=== PATIENT | female | born 1970 | race Caucasian/White ===

== ENCOUNTER 2017-06-04 12:38 | Emergency (ER) | payer MEDICARE ==
[~2017-06-04] VITALS: Ht 165.1 cm; Wt 120.2 kg
[~2017-06-04 12:38] MED LIST: AMITRIPTYLINE10 M1 PO; ASPIRIN LOW DOS81 M1 PO; CARLSON VITAM2000 IU PO; FOLIC ACID1 MG PO; MELOXICAM15 MG PO; METHOTREXATE 22.5 MG PO; PLAQUENIL200 MG PO; PREDNISONE 20MG20 MG PO
[2017-06-04] MEDS ORDERED: CYCLOBENZ5 MG PO (12:49)
[2017-06-04] MEDS ORDERED: XELJANZ5 MG PO (12:50)
[2017-06-04 13:04] LABS: URINE BILIRUBIN - DIPSTICK NEGATIVE (NEG); URINE BLOOD NEGATIVE (NEG)
--- OUTSIDE RECORDS SUMMARY | 2017-06-04 13:10 | External Medical Summary Rpt ---
Author Author [facility] Organization [facility] Address Unknown Phone Unavailable Care Team Providers Care Raisin Washer Name Role Phone CHAR JUNIOR PCP [phone] Encounter [facility] [id number] Date(s): 08/05/16 - 08/05/16 [facility] [address] [place] [id number]- Discharge Diagnosis: Abnormal vaginal bleeding Discharge Disposition: OP Self Care or Home Attending Physician: SANTOSH ANGELES MD Admitting Physician: SANTOSH ANGELES MD Referring Physician: SANTOSH ANGELES MD Reason for Visit ABNORMAL UTERINE AND VAGINAL BLEEDING, UNSPECIFIED Vital Signs Most recent 1 2 to oldest [Reference Range]: Temperature Oral Source (08/05/16 1:24 PM) Temperature Fahrenheit Mode (08/05/16 1:24 PM) Temperature, 97.6 Deg F Fahrenheit (08/05/16 1:24 PM) [96.8-99.7 Deg F] Clinical 36.4 Deg C Temperature, (08/05/16 1:24 PM) C Peripheral 84 bpm 88 bpm Pulse Rate (08/05/16 3:34 PM) (08/05/16 1:24 PM) [60-100 bpm] Respiratory 18 Breaths/Min 16 Breaths/Min Rate [14-20 (08/05/16 3:34 PM) (08/05/16 1:24 PM) Breaths/Min] Blood Arm, left upper Pressure (08/05/16 3:34 PM) Location Blood Non-Invasive BP Device Pressure (08/05/16 3:34 PM) Source Blood 126/64 mmHg 143/94 mmHg Pressure (08/05/16 3:34 PM) *HI* [90-140/60-9 (08/05/16 1:24 PM) 0 mmHg] Oxygen 100 % 100 % Saturation (08/05/16 3:34 PM) (08/05/16 1:24 PM) [94-100 %] Oxygen Room air Therapy Mode (08/05/16 1:24 PM) Problem List Condition Effective Status Health Informant Dates Status Brain Active Lesion(Confi rmed) RA(Confirmed Active ) Allergies, Adverse Reactions, Alerts Substance Reaction Severity Status gabapentin Active Lyrica Active sulfamethoxazole Active Medications traMADol (Ultram 50 mg oral tablet)1 Tab, Oral, Every 6 Hours, 3 Day(s), As Needed, for pain, Refills: 0Ordering provider: ROBERTO TORRES MD Results GENERAL CHEMISTRY Most recent 1 to oldest [Reference Range]: Sodium Level 144 mmol/L [136-146 (08/05/16 1:56 PM) mmol/L] Potassium 5.2 mmol/L Level *HI* [3.5-5.1 (08/05/16 1:56 PM) mmol/L] Chloride 111 mmol/L Level (08/05/16 1:56 PM) [102-112 mmol/L] Carbon 29 mmol/L Dioxide (08/05/16 1:56 PM) Level [21-32 mmol/L] Anion Gap 9 [9-20] (08/05/16 1:56 PM) Glucose 72 mg/dL Level *LOW* [74-106 (08/05/16 1:56 PM) mg/dL] Blood Urea 14 mg/dL Nitrogen (08/05/16 1:56 PM) [7-22 mg/dL] Creatinine 1.00 mg/dL Level (08/05/16 1:56 PM) [0.55-1.02 mg/dL] eGFR 73 mL/min/1.73m2 [>=60 (08/05/16 1:56 PM) mL/min/1.73m 2] eGFR 60 mL/min/1.73m2 NonAfrican (08/05/16 1:56 PM) [>=60 mL/min/1.73m 2] Bun/Creatini 14.0 ne (08/05/16 1:56 PM) [8.0-20.0] Calcium 8.8 mg/dL Level (08/05/16 1:56 PM) [8.5-10.1 mg/dL] Protein 6.6 Gram/dL Total (08/05/16 1:56 PM) [6.4-8.2 Gram/dL] Albumin 3.2 Gram/dL Level *LOW* [3.4-5.0 (08/05/16 1:56 PM) Gram/dL] Globulin 3.4 Gram/dL [1.5-4.5 (08/05/16 1:56 PM) Gram/dL] A/G Ratio 0.9 [1.1-2.5] *LOW* (08/05/16 1:56 PM) Bilirubin 0.5 mg/dL Total (08/05/16 1:56 PM) [0.2-1.0 mg/dL] Alk Phos 84 Units/Liter [27-136 (08/05/16 1:56 PM) Units/Liter] AST [5-37 20 Units/Liter Units/Liter] (08/05/16 1:56 PM) ALT [12-78 28 Units/Liter Units/Liter] (08/05/16 1:56 PM) HEMATOLOGY Most recent 1 to oldest [Reference Range]: WBC 9.4 K/uL [4.0-10.0 (08/05/16 1:56 PM) K/uL] RBC 4.58 Million/uL [3.93-5.22 (08/05/16 1:56 PM) Million/uL] Hgb 14.4 g/dL [11.2-15.7 (08/05/16 1:56 PM) g/dL] Hct 45.1 % [34.1-44.9 *HI* %] (08/05/16 1:56 PM) MCV 98.5 fL [79.0-94.8 *HI* fL] (08/05/16 1:56 PM) MCH 31.4 pg [25.6-32.2 (08/05/16 1:56 PM) pg] MCHC 31.9 Gram/dL [32.2-36.5 *LOW* Gram/dL] (08/05/16 1:56 PM) Platelet 235 K/uL Count (08/05/16 1:56 PM) [163-369 K/uL] MPV 10.0 fL [9.4-12.4 (08/05/16 1:56 PM) fL] RDW 13.9 % [11.6-14.4 (08/05/16 1:56 PM) %] Neut % 74.5 % [34.0-71.0 *HI* %] (08/05/16 1:56 PM) Neut # 6.99 K/uL [1.56-6.13 *HI* K/uL] (08/05/16 1:56 PM) Lymph % 12.5 % [19.3-53.1 *LOW* %] (08/05/16 1:56 PM) Lymph # 1.17 x10(3)/uL [1.00-3.90 (08/05/16 1:56 PM) x10(3)/uL] [place] % 11.0 % [3.0-9.0 %] *HI* (08/05/16 1:56 PM) [place] # 1.03 K/uL [0.16-1.00 *HI* K/uL] (08/05/16 1:56 PM) Eos % 1.2 % [0.0-7.0 %] (08/05/16 1:56 PM) Eos # 0.11 x10(3)/uL [0.00-0.80 (08/05/16 1:56 PM) x10(3)/uL] Baso % 0.3 % [0.0-1.5 %] (08/05/16 1:56 PM) Baso # 0.03 x10(3)/uL [0.00-0.20 (08/05/16 1:56 PM) x10(3)/uL] Slide Review No (08/05/16 1:56 PM) IG# 0.05 x10(3)/uL [0.00-0.05 (08/05/16 1:56 PM) x10(3)/uL] IG% 0.50 % [0.00-0.60 (08/05/16 1:56 PM) %] Immunizations No data available for this section Procedures No data available for this section Social History Social History Response Type Tobacco Use in Last 12 Months: No. Assessment and Plan No data available for this section Hospital Discharge Instructions Patient EducationUterine Bleeding, Dysfunctional
--- OUTSIDE RECORDS SUMMARY | 2017-06-04 13:10 | External Medical Summary Rpt ---
Author Author [facility] Address Unknown Phone Unavailable Care Team Providers Care Manager Residential Name Role Phone CHAR JUNIOR PCP [phone] Encounter [facility] [id number] Date(s): 08/05/16 - 08/05/16 [facility] [address] [place] [id number]- Discharge Diagnosis: Abnormal vaginal bleeding Discharge Disposition: [...] 1.17 x10(3)/uL [1.00-3.90 (08/05/16 1:56 PM) x10(3)/uL] [place] % 11.0 % [3.0-9.0 %] *HI* (08/05/16 1:56 PM) [place] # 1.03 K/uL [0.16-1.00 *HI* K/uL] (08/05/16 [...]
--- OUTSIDE RECORDS SUMMARY | 2017-06-04 13:11 | External Medical Summary Rpt ---
Author Author [facility] [employer] Organization [facility] [employer] Address Unknown Phone Unavailable
--- OUTSIDE RECORDS SUMMARY | 2017-06-04 13:11 | External Medical Summary Rpt ---
Demographics Preferred Language Macanese Marital Status Unknown Yazidism Affiliation Unknown Race Unknown Ethnic Group Unknown Author Author [facility] Address Unknown Phone Immunization Unable to retrieve immunization data due to connection failure with Immunization Registry. Please try again later.
--- OUTSIDE RECORDS SUMMARY | 2017-06-04 13:11 | External Medical Summary Rpt ---
Demographics Preferred Language Mexican Marital Status Unknown Sikhism Affiliation Unknown Race Unknown Ethnic Group Unknown Author Author [facility] Address Unknown Phone Immunization Unable to retrieve immunization data due to connection failure with Immunization Registry. Please try again later.
--- OUTSIDE RECORDS SUMMARY | 2017-06-04 13:11 | External Medical Summary Rpt ---
Author Author [facility] Organization [facility] Address Unknown Phone Unavailable Purpose Continuity of Care Document - through 2016
--- OUTSIDE RECORDS SUMMARY | 2017-06-04 13:11 | External Medical Summary Rpt ---
Author Author , [facility]EEPTI Camara [facility] Address Unknown Phone [email or web address] Support Name Relationship Address Phone SANTY, Next Of Kin [address] [place] [phone] Purpose Continuity of Care Document - 05-22-2013 through 2016 Allergies, Adverse Reactions, Alerts Type Drug Allergy Adverse Reaction to Substance Substance Reaction Severity SULFA (sulfonamide) Unknown Unknown Gabapentin Unknown Unknown Pregabalin Unknown Unknown Medications Na ND Rx Da Fi Fi Am Da Di Ph RX Ph St me C No te ll ll ou ys ag ar # ys at rm s nt no ma ic us Or Da si cy ia de te s n re d Sa 63 07 0 No li 80 -1 ne 70 8- Lo 10 20 ng Fl 07 13 er us 5 h Ac 10 ti ML ve Sy ri ng e Vital Signs 05-22-2013 20:08 Name Value Interpretat Reference Comment ion Range Body 98.5 [degF] Temperature BP 88 mm[Hg] Diastolic BP Systolic 145 mm[Hg] Heart 71 /min Rate/Pulse O2% 100 % Respiratory 20 /min Rate 05-22-2013 18:28 Name Value Interpretat Reference Comment ion Range BP 92 mm[Hg] Diastolic BP Systolic 147 mm[Hg] Heart 74 /min Rate/Pulse O2% 100 % Respiratory 20 /min Rate Results Labs Lab Lab Date Result Refere Interp Status Commen Order Detail nces retati t Range on COMPREHENSIVE METABOLIC PANEL (05-22-2013 19:15) Glucose 76 74-106 complet 013 mg/dL ed Bld-mCn 19:15 c BUN 11 7-18 complet Bld-mCn 013 mg/dL ed c 19:15 Creat 0.7 0.6-1.0 complet SerPl-m 013 mg/dL ed Cnc 19:15 ESTIMAT 188 50-200 complet ED 013 ML/MIN ed CREATIN 19:15 INE CLEARAN CE GFR 92 59- complet (ESTIMA 013 ML/MIN ed MABEL) 19:15 Sodium 18-2 140 136-145 complet SerPl-s 013 mmoL/L ed Cnc 19:15 Potassi 18-2 3.9 3.5-5.1 complet um 013 mmoL/L ed SerPl-s 19:15 Cnc Chlorid 05-22-2 104 98-107 complet e 013 mmoL/L ed SerPl-s 19:15 Cnc CO2 18-2 30 21.0-32 complet SerPl-s 013 mmoL/L .0 ed Cnc 19:15 Calcium 18-2 8.6 8.5-10. complet 013 mg/dL 1 ed SerPl-m 19:15 Cnc Prot 05-22-2 7.3 6.4-8.2 complet SerPl-m 013 gm/dL ed Cnc 19:15 Albumin 05-22-2 3.3 3.4-5.0 complet 013 gm/dL ed SerPl-m 19:15 Cnc Globuli 05-22-2 4.0 1.3-3.2 complet n 013 gm/dL ed Ser-mCn 19:15 c Albumin 18-2 0.8 UNK 1.1-1.8 complet /Glob 013 ed SerPl-m 19:15 Rto Bilirub 18-2 0.3 0.2-1.0 complet 013 mg/dL ed SerPl-m 19:15 Cnc AST 18-2 8 U/L 15-37 complet SerPl-c 013 ed Cnc 19:15 ALT 18-2 35 U/L 30-65 complet SerPl-c 013 ed Cnc 19:15 ALP -18-2 102 U/L 50-136 complet SerPl-c 013 ed Cnc 19:15 CK SerPl-cCnc (05-22-2013 19:15) CK -18-2 53 U/L 26-192 complet SerPl-c 013 ed Cnc 19:15 CK MB SerPl-mCnc (05-22-2013 19:15) CK MB 18-2 0.9 0.0-3.6 complet SerPl-m 013 ng/mL ed Cnc 19:15 TROPONIN I (05-22-2013 19:15) TROPONI -18-2 Less 0.00-0. complet N I 013 than 06 ed 19:15 0.02 ng/mL CBC with AUTO DIFF (05-22-2013 18:45) WBC # 07-18-2 8.3 4.8-10. complet Bld 013 K/MM3 8 ed Auto 18:45 RBC # 07-18-2 4.50 4.2-5.4 complet Bld 013 M/mm3 ed Auto 18:45 Hgb 07-18-2 14.1 12.2-16 complet Bld-mCn 013 g/dL .2 ed c 18:45 Hct Fr -18-2 43.1 % 37.0-47 complet Bld 013 .0 ed 18:45 MCV RBC 07-18-2 95.8 fl 82.2-97 complet 013 .8 ed 18:45 MCH RBC 18-2 31.3 pg 27-31.2 complet Qn 013 ed Auto 18:45 MEAN 07-18-2 32.6 31.8-35 complet CORPUSC 013 g/dl .4 ed ULAR 18:45 HGB CONC RDW RBC -18-2 15.3 % 11.5-17 complet Auto 013 .5 ed 18:45 Platele 07-18-2 265 142-424 complet t Bld 013 K/mm3 ed Ql 18:45 Manual MEAN 18-2 7.9 fl 7.4-10. complet PLATELE 013 4 ed T 18:45 VOLUME Granulo -18-2 72.1 % 37.0-80 complet cytes 013 .0 ed Fr Bld 18:45 Auto LYMPH % 07-18-2 19.4 % 10-50.0 complet 013 ed 18:45 Monocyt 07-18-2 5.6 % 1.7-9.3 complet es Fr 013 ed Bld 18:45 Auto Eosinop 07-18-2 2.4 % 0.1-12. complet hil Fr 013 0 ed Bld 18:45 Auto Basophi 07-18-2 0.5 % 0.1-2.0 complet ls Fr 013 ed Bld 18:45 Auto Granulo 07-18-2 6.0 1.8-7.8 complet cytes # 013 K/mm3 ed Bld 18:45 Auto Lymphoc 07-18-2 1.6 0.7-4.5 complet ytes Fr 013 K/mm3 ed Bld 18:45 Auto Monocyt 07-18-2 0.5 0.1-1.0 complet es # 013 K/mm3 ed Bld 18:45 Auto Eosinop -18-2 0.2 0.0-0.4 complet hil # 013 K/mm3 ed Bld 18:45 Auto Basophi -18-2 0.0 0-0.2 complet ls # 013 K/MM3 ed Bld 18:45 Auto Encounters Encounter Start End Date Code Location Performer Type Date Emergency RJ Brooke MD (ER) 3 17:52 3 20:28 [facility]
--- OUTSIDE RECORDS SUMMARY | 2017-06-04 13:11 | External Medical Summary Rpt ---
Author Author , DEEPTI Camara [facility] Address Unknown Phone [email or web address] Support Name Relationship Address Phone SANTY, Next Of Kin [address] [place] [phone] Purpose Continuity of Care Document - 05-22-2013 [...] Brooke MD (ER) 3 17:52 3 20:28 [facility]
--- NOTE | 2017-06-04 13:15 | Emergency Room Report ---
History of Present Illness Time Seen by [email or web address] Presenting Problem in Triage Pt arrived:Wheelchair Presenting Problem:PT REPORTS GENERALIZED WEAKNESS. PT REPORTS WEAKNESS AND INTENSE PAIN WITH TOUCH ON L SIDE OF BODY. 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 PT ALSO NOTES THAT HER URINE HAS A "SWEET" SMELL TO IT X2 WEEKS. 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 N Clinical Suspician of Infection? N Mental Status: 1 - Regular (Normal Baseline) Sepsis Risk:Low Sepsis Risk Have you (or family members/close friends) recently traveled outside the [place]? N If Yes, where/when: Have you had exposure to infectious disease within the past month? N TB? Other? Specify: Patient reports "I have a humming in my body, like a refrigerator, and my urine smells sweet." Onset yesterday, very gradual. No chest pain or palpitations. States has fibromyalgia and chronic fatigue with RA. Occasionally uses a walker. No fever or vomiting. No syncope. No cough. She states she has been trying to work, then doesn't feel well, and can't go to work. ALLERGIES Coded Allergies: Sulfa (Sulfonamide Antibiotics) (06/04/17) gabapentin (06/04/17) pregabalin (From LYRICA) (06/04/17) ORANGE JUICE (FOOD) (From ORANGE JUICE (FOOD/DRUG)) (Mild, "SINUS PROBLEMS" ) orange juice (From ORANGE JUICE (FOOD/DRUG)) (Mild, "SINUS PROBLEMS" 06/04/17) Home Medications Reported Medications Cyclobenzaprine Hcl (Cyclobenzaprine) 5 MG PO QHS #90 Tofacitinib Citrate (Xeljanz) 5 MG PO BID #180 History Medical History General CAD? No Angina: No [place]: No Hypertension? No Hyperlipidemia? No CHF? No DVT? No PE? No COPD? No Asthma? No Anemia? No GERD? No Gastric ulcers? No GI Bleed? No Hernia? No Thyroid Problems? No Hypothyroidism? No CVA? No Seizures? No Diabetes? No Renal Insuffiency? No End Stage Renal Disease? No UTI? No Stones? No GB Disease: No Nephritic Syndrome? No Asplenia? No Hepatitis? No Sickle Cell Disease? No Arthritis? Yes Migraines? Yes Cataracts? No Glaucoma? No MRSA? No HIV? No TB? No Anxiety? Yes Depression? Yes Cancer? No More? 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 Physical Exam Vital Signs Vital Signs Date Time Temp Pulse Resp B/P Pulse O2 O2 Flow FiO2 Ox Delivery Rate 06/04 1343 90 14 121/96 96 06/04 1340 90 121/96 06/04 1340 94 153/96 06/04 1339 86 126/78 06/04 1242 97.7 64 18 149/104 96 General Appearance normal appearance, WD/WN, no apparent distress Eye Exam - bilateral eye normal exam, bilateral eye PERRL, bilateral eye EOMI Neck normal inspection, non-tender, supple, full range of motion Respiratory Status Yes: trachea midline, chest symmetrical, non tender chest. No: respiratory distress, tender on palpation, use of accessory muscles, pain on inspiration, pain on expiration, productive cough, non productive cough. Lung Sounds bilateral: normal breath sounds, lungs clear. 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 Lymphatic no adenopathy Medical Decision Making LABS/Meds/Orders Pt receiving controlled substance in ED? No Results/Orders Laboratory Tests 06/04/17 1335: Troponin I < 0.02 06/04/17 1335: Sodium 139, Potassium 4.0, Chloride 102, Carbon Dioxide 32, BUN 10, Creatinine 0.8, Estimated Creat Clear 167, Estimated GFR (MDRD) 77, Glucose 108 H, Calcium 9.3, Total Bilirubin 0.4, AST 14 L, ALT 22, Alkaline Phosphatase 114, Total Protein 8.0, Albumin 3.4, Globulin 4.6 H, Albumin/Globulin Ratio 0.7 L, WBC 7.1, RBC 5.19, Hgb 15.8, Hct 48.7 H, MCV 93.9, RDW 13.5, Plt Count 292, MPV 8.0 , Gran % 73.0, Gran # 5.2, Lymphocytes % 20.2, Monocytes % 4.4, Eosinophils % 2.0, Basophils % 0.5, Lymphocytes # 1.4, Monocytes # 0.3, Eosinophils # 0.1, Basophils # 0.0, PUBS MCHC 32.4, MCH 30.4 06/04/17 1250: Urine Color YELLOW, Urine Appearance SL CLOUDY, Urine pH 7.0, Ur Specific Adams 1.010, Urine Protein NEGATIVE, Urine Ketones NEGATIVE, Urine Blood NEGATIVE, Urine Nitrate POSITIVE H, Urine Bilirubin NEGATIVE, Urine Urobilinogen 0.2, Ur Leukocyte Esterase 3+ H, Urine RBC OCC, Urine WBC 5-10, Ur Squamous Epith Cells 3-5, Urine Bacteria 4+, Urine Mucus OCC, Urine Glucose NEGATIVE Current Medication Orders Sig/Nafisa Start time Last Medication Dose Route Stop Time Status Admin Sodium Chloride 10 ML PRN PRN 06/04 1400 AC IV 06/05 1347 Orders Procedure Date/time Status IV SALINE LOCK 06/04 1347 Active ELECTROCARDIOGRAM REQUEST 06/04 1310 Active TROPONIN I 06/04 1310 Complete ORTHOSTATIC B/P 06/04 1309 Active CBC WITH AUTO DIFF 06/04 1309 Complete CHEM 12 PROFILE 06/04 1309 Complete URINALYSIS/COMPLETE 06/04 1254 Complete CULTURE, URINE 06/04 1250 Active 12 LEAD EKG-JOHANA (INITIAL) 06/04 UNK Active CM/EKG CM/EKG EKG rate, NSR, rhythm, no evid. of ischemic chgs, no ectopy, normal QRS, normal [place], normal EKG (NSR 77. ) Departure Departure Time of Disposition 1412 Disposition DC Home or Self Care(routine) Clinical Impression Primary Impression: UTI (urinary tract infection) Qualifiers: Urinary tract infection type: acute cystitis Hematuria presence: without hematuria Qualified Code: N30.00 - Acute cystitis without hematuria Condition STABLE Referrals MEL JUNIOR (Family) Patient Instructions Urinary Tract Infection Additional Instructions Lots of fluids, see your family doctor in [place] in one week if doing better ,sooner if no improvement; Rx Macrobid. Discharge Counseling Counseled pt/family regarding diagnosis, test results, medications/RX, home care, follow up needs Prescriptions Current Visit Scripts NITROFURANTOIN MONOHYD/M-CRYST (Macrobid 100 MG Capsule) 100 MG PO BID #14 CAP ED Critical Care Critical Care No at 1415
--- NOTE | 2017-06-04 13:15 | Emergency Room Report ---
History of Present Illness Time Seen by 124Kellee Presenting Problem in Triage Pt arrived:Wheelchair Presenting Problem:PT REPORTS GENERALIZED WEAKNESS. PT REPORTS WEAKNESS AND INTENSE PAIN WITH TOUCH ON L SIDE OF BODY. 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 PT ALSO NOTES THAT HER URINE HAS A "SWEET" SMELL TO IT X2 WEEKS. PT ALSO REPORTS DIZZINESS Onset of symptoms date/time:/ or onset unknown for:MEDICAL HX UNKNOWN Treatment Prior to Arrival: MEAL ROOM HAND Provided by: Sepsis Risk Assessment: Temp: 97.7 B/P: 149/104 MAP: 119 Pulse: 64 Resp: 18 Recent fever? N Clinical Suspician of Infection? N Mental Status: 1 - Regular (Normal Baseline) Sepsis Risk:Low Sepsis Risk Have you (or family members/close friends) recently traveled outside the [place]? N If Yes, where/when: Have you had exposure to infectious disease within the past month? N TB? Other? Specify: Patient reports "I have a humming in my body, like a refrigerator, and my urine smells sweet." Onset yesterday, very gradual. No chest pain or palpitations. States has fibromyalgia and chronic fatigue with RA. Occasionally uses a walker. No fever or vomiting. No syncope. No cough. She states she has been trying to work, then doesn't feel well, and can't go to work. ALLERGIES Coded Allergies: Sulfa (Sulfonamide Antibiotics) (06/04/17) gabapentin (06/04/17) pregabalin (From LYRICA) (06/04/17) ORANGE JUICE (FOOD) (From ORANGE JUICE (FOOD/DRUG)) (Mild, "SINUS PROBLEMS" ) orange juice (From ORANGE JUICE (FOOD/DRUG)) (Mild, "SINUS PROBLEMS" 06/04/17) Home Medications Reported Medications Cyclobenzaprine Hcl (Cyclobenzaprine) 5 MG PO QHS #90 Tofacitinib Citrate (Xeljanz) 5 MG PO BID #180 History Medical History General CAD? No Angina: No KS: No Hypertension? No Hyperlipidemia? No CHF? No DVT? No PE? No COPD? No Asthma? No Anemia? No GERD? No Gastric ulcers? No GI Bleed? No Hernia? No Thyroid Problems? No Hypothyroidism? No CVA? No Seizures? No Diabetes? No Renal Insuffiency? No End Stage Renal Disease? No UTI? No Stones? No GB Disease: No Nephritic Syndrome? No Asplenia? No Hepatitis? No Sickle Cell Disease? No Arthritis? Yes Migraines? Yes Cataracts? No Glaucoma? No MRSA? No HIV? No TB? No Anxiety? Yes Depression? Yes Cancer? No More? 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 Physical Exam Vital Signs Vital Signs Date Time Temp Pulse Resp B/P Pulse O2 O2 Flow FiO2 Ox Delivery Rate 06/04 1343 90 14 121/96 96 06/04 1340 90 121/96 06/04 1340 94 153/96 06/04 1339 86 126/78 06/04 1242 97.7 64 18 149/104 96 General Appearance normal appearance, WD/WN, no apparent distress Eye Exam - bilateral eye normal exam, bilateral eye PERRL, bilateral eye EOMI Neck normal inspection, non-tender, supple, full range of motion Respiratory Status Yes: trachea midline, chest symmetrical, non tender chest. No: respiratory distress, tender on palpation, use of accessory muscles, pain on inspiration, pain on expiration, productive cough, non productive cough. Lung Sounds bilateral: normal breath sounds, lungs clear. 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 Lymphatic no adenopathy Medical Decision Making LABS/Meds/Orders Pt receiving controlled substance in ED? No Results/Orders Laboratory Tests 06/04/17 1335: Troponin I < 0.02 06/04/17 1335: Sodium 139, Potassium 4.0, Chloride 102, Carbon Dioxide 32, BUN 10, Creatinine 0.8, Estimated Creat Clear 167, Estimated GFR (MDRD) 77, Glucose 108 H, Calcium 9.3, Total Bilirubin 0.4, AST 14 L, ALT 22, Alkaline Phosphatase 114, Total Protein 8.0, Albumin 3.4, Globulin 4.6 H, Albumin/Globulin Ratio 0.7 L, WBC 7.1, RBC 5.19, Hgb 15.8, Hct 48.7 H, MCV 93.9, RDW 13.5, Plt Count 292, MPV 8.0 , Gran % 73.0, Gran # 5.2, Lymphocytes % 20.2, Monocytes % 4.4, Eosinophils % 2.0, Basophils % 0.5, Lymphocytes # 1.4, Monocytes # 0.3, Eosinophils # 0.1, Basophils # 0.0, PUBS MCHC 32.4, MCH 30.4 06/04/17 1250: Urine Color YELLOW, Urine Appearance SL CLOUDY, Urine pH 7.0, Ur Specific [place] 1.010, Urine Protein NEGATIVE, Urine Ketones NEGATIVE, Urine Blood NEGATIVE, Urine Nitrate POSITIVE H, Urine Bilirubin NEGATIVE, Urine Urobilinogen 0.2, Ur Leukocyte Esterase 3+ H, Urine RBC OCC, Urine WBC 5-10, Ur Squamous Epith Cells 3-5, Urine Bacteria 4+, Urine Mucus OCC, Urine Glucose NEGATIVE Current Medication Orders Sig/Nafisa Start time Last Medication Dose Route Stop Time Status Admin Sodium Chloride 10 ML PRN PRN 06/04 1400 AC IV 06/05 1347 Orders Procedure Date/time Status IV SALINE LOCK 06/04 1347 Active ELECTROCARDIOGRAM REQUEST 06/04 1310 Active TROPONIN I 06/04 1310 Complete ORTHOSTATIC B/P 06/04 1309 Active CBC WITH AUTO DIFF 06/04 1309 Complete CHEM 12 PROFILE 06/04 1309 Complete URINALYSIS/COMPLETE 06/04 1254 Complete CULTURE, URINE 06/04 1250 Active 12 LEAD EKG-JOHANA (INITIAL) 06/04 UNK Active CM/EKG CM/EKG EKG rate, NSR, rhythm, no evid. of ischemic chgs, no ectopy, normal QRS, normal MS, normal EKG (NSR 77. 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 Discharge Counseling Counseled pt/family regarding diagnosis, test results, medications/RX, home care, follow up needs Prescriptions Current Visit Scripts NITROFURANTOIN MONOHYD/M-CRYST (Macrobid 100 MG Capsule) 100 MG PO BID #14 CAP ED Critical Care Critical Care No at 1415
[2017-06-04 13:45] LABS: LYMPH # 1.4 K/mm3 (0.7-4.5); LYMPH % 20.2 % (10-50.0)
[2017-06-04 13:52] LABS: HEMOGLOBIN 15.8 g/dL (12.2-16.2)
[2017-06-04] MEDS ORDERED: MACROBID100 M3 PO (14:14)
[2017-06-04 14:23] VITALS: BP 151/90
== END 2017-06-04 14:23 | disposition home or self-care (01) ==
LOC: ER 12:38
PROVIDERS: Emergency Medicine
DX: N30.00 Acute cystitis without hematuria (principal)